=== PATIENT | female | born 1995 | race Caucasian/White ===

== ENCOUNTER 2021-10-06 14:53 | Emergency (ER) | payer OTHER ==
[2021-10-06 16:34] LABS: BASOPHIL 0.3 % (0-2); EOSINOPHIL 2.2 % (0-5); HGB 15.4 g/dl (12.5-16.0); LYMPHOCYTE 19.4 % (15-48); MCH 33.5 pg (25.0-31.0); MCHC 34.2 g/dL (32.0-36.0); MCV 97.8 fL (78.0-100.0); MONOCYTE 4.9 % (0-12); MPV 10.7 fL (6.0-9.5); NEUTROPHIL 73.1 % (41-80); NRBC 0; PLT 172 K/uL (150-400); RDW 12.1 % (11.5-14.0); WBC 7.8 K/uL (4.0-10.5)
[2021-10-06 16:55] LABS: ALBUMIN 3.9 g/dL (3.4-5.0); BILIRUBIN - TOTAL 0.8 mg/dL (0.2-1.0); BUN/CREAT RATIO (CALC) 14.7 RATIO; CREATININE 0.68 mg/dL (0.51-0.95); GLOBULIN (CALCULATION) 3.7 g/dL; POTASSIUM 3.8 mmol/L (3.5-5.1); TOTAL PROTEIN 7.6 g/dL (6.4-8.2)
[2021-10-06 17:53] LABS: BILIRUBIN 1+ mg/dL (NEGATIVE); BLOOD TRACE-INTACT Ery/uL (NEGATIVE); CLARITY CLEAR (CLEAR); COLOR YELLOW (YELLOW); GLUCOSE (U) NORMAL (NORMAL); LEUKOCYTES NEGATIVE Leu/uL (NEGATIVE); NITRITE NEGATIVE (NEGATIVE); PROTEIN NEGATIVE (NEGATIVE); SPECIFIC GRAVITY 1.025 (1.001-1.030); UROBILINOGEN 0.2 mg/dL (0.2-1.0); pH 6.5 (5.0-9.0)
[2021-10-06 18:18] LABS: MUCOUS LARGE; URINARY RBC RARE
== END 2021-10-06 19:32 | disposition home or self-care (01) ==
LOC: FER 14:53
PROVIDERS: Nurse Practitioner Family
DX: R10.84 Generalized abdominal pain (principal); R11.2 Nausea with vomiting, unspecified; F17.210 Nicotine dependence, cigarettes, uncomplicated
CPT/HCPCS: 36415; 80053; 81001; 85025; J7030; Q9967